=== PATIENT | female | born 1950 | race Asian ===

== ENCOUNTER 2023-07-02 09:17 | Emergency (ER) | payer MEDICARE, OTHER ==
[~2023-07-02] VITALS: Ht 147.3 cm; Wt 59.1 kg
[2023-07-02 09:30] VITALS: TEMP 97.8
[2023-07-02 10:12] LABS: APPEARANCE,URINE CLEAR (CLEAR); BILIRUBIN,URINE NEGATIVE (NEGATIVE); COLOR,URINE LIGHT YELLOW (YELLOW); GLUCOSE, URINE (UA) NEGATIVE (NEGATIVE); KETONES,URINE NEGATIVE (NEGATIVE); LEUKOCYTE ESTERASE ,URINE NEGATIVE (NEGATIVE); NITRATE,URINE NEGATIVE (NEGATIVE); OCCULT BLOOD,URINE NEGATIVE (NEGATIVE); PH,URINE 7.5 (5.0-8.0); PROTEIN,URINE NEGATIVE (NEGATIVE); SPECIFIC GRAVITIY, URINE 1.009 (1.003-1.030); UROBILINOGEN,URINE <=1.0 mg/dL (<=1.0)
[2023-07-02 10:27] LABS: BACTERIA,URINE None Seen /HPF (None Seen); RBC,URINE None Seen /HPF (0-2); WBC,URINE None Seen /HPF (0-5)
[2023-07-02] MEDS ORDERED: KETOROLAC TROMETHAMINE 30 MG/ML VIAL IM ONE (10:30)
[2023-07-02] MEDS ORDERED: LIDOCAINE 5% TRANSDERMAL PATCH TD ONE (11:30)
[2023-07-02] MEDS ORDERED: LIDO700A15 TP (11:31)
[2023-07-02 11:45] VITALS: BP 157/59; PULSE 61; RESP 16
== END 2023-07-02 12:06 | disposition home or self-care (01) ==
LOC: EMS 09:59
DX: M54.32 Sciatica, left side (principal); E78.00 Pure hypercholesterolemia, unspecified; I10 Essential (primary) hypertension
CPT/HCPCS: 99285; 72131; 81001; 96372; J1885

== ENCOUNTER 2025-04-19 17:37 | Emergency (ER) | payer MEDICARE, OTHER ==
[~2025-04-19] VITALS: Ht 149.9 cm; Wt 51.0 kg
[~2025-04-19 17:37] MED LIST: LIDO-57 TP
[2025-04-19 17:44] VITALS: BP 154/56; PULSE 67; RESP 18; TEMP 98.4; O2SAT 96
[2025-04-19 18:11] LABS: PLATELET COUNT (AUTO) 256 K/uL (150-450); RED BLOOD CELL COUNT(AUTO) 5.08 MIL/uL (4.00-5.20); RED CELL DISTRIBUTION WIDTH 14.0 % (11.5-14.5); WHITE BLOOD COUNT (AUTO) 7.2 K/uL (4.5-11.0)
[2025-04-19 18:19] LABS: CALCIUM, TOTAL 9.6 mg/dL (8.8-10.5); CREATININE 0.85 mg/dL (0.60-1.30); GLOMERULAR FILTR. RATE CALC > 60 mL/min (>60); GLUCOSE,RANDOM 204 mg/dL (70-110); SODIUM SERUM 142 mmol/L (136-145); UREA NITROGEN, BLOOD 13 mg/dL (7-18)
[2025-04-19 18:50] LABS: GLUCOMETER DEV NAME(LOC) ER.7; GLUCOSE,POINT OF CARE 255 MG/DL (70-110)
[2025-04-19] MEDS ORDERED: PROP10DR15 OS (19:14)
[2025-04-19] MEDS ORDERED: METF-1211 PO (19:14)
[2025-04-19] MEDS ORDERED: ROSU40TA88 PO (19:14)
[2025-04-19] MEDS ORDERED: COLC-3 PO (19:14)
[2025-04-19] MEDS ORDERED: AMLO10TA55 PO (19:14)
[2025-04-19] MEDS: MECLIZINE HCL 25 MG TABLET PO ONE (19:21)
[2025-04-19] MEDS ORDERED: MECL-226 PO (20:14)
== END 2025-04-19 20:45 | disposition home or self-care (01) ==
LOC: EMS 17:37
DX: R51.9 Headache, unspecified (principal); E78.00 Pure hypercholesterolemia, unspecified; I10 Essential (primary) hypertension; Z79.899 Other long term (current) drug therapy
CPT/HCPCS: 80048; 82962; 85025; 93005; 99284